=== PATIENT | female | born 1970 | race Two or more races ===

== ENCOUNTER → 2021-04-10 | Emergency (ER) | payer OTHER ==
[~2021-04-10] VITALS: Ht 157.5 cm; Wt 62.6 kg
[~2021-04-10] MED LIST: ARMOUR THYROID90 MG; CYTOMEL5 MCG
== END | disposition left against medical advice (07) ==
LOC: ER 13:07
DX: Z53.20 Procedure and treatment not carried out because of patient's decision for unspecified reasons (principal)